=== PATIENT | female | born 1995 | race Caucasian/White ===

== ENCOUNTER 2017-09-26 16:26 | Emergency (ER) | payer OTHER ==
[~2017-09-26] VITALS: Ht 160 cm; Wt 63.5 kg
[2017-09-26 16:26] VITALS: BP_SYST 120
--- NOTE | 2017-09-26 16:26 | NUR ---
Pt placed in bed 5 by ALS, report endorsed to Pierre BELLAMY
--- NOTE | 2017-09-26 16:26 | NUR ---
BROUGHT IN BY [facility], PLACED IN BED #5 AND TRIAGED. REPORT GIVEN TO NASREEN
--- NOTE | 2017-09-26 16:28 | NUR ---
Patient aao x 4, from home with complaint of chest pain and shortness of breath since this afernoon BIBA via ACLS. Upon assessment, patient presents as decreasing chest pain, she states "they gave me an asprin in the ambulance as I was going over here." O2sat 100% on room air, able to move all extrermities, strong and equal traffic analyst strength bilateral upper and lower extremities, no drift noted. She is able to follow commands. No other complaints/injuries per patient, none noted.
--- NOTE | 2017-09-26 16:30 | NUR ---
Dr. Hernandez at bedside examining patient.
[2017-09-26] MEDS ORDERED: ASPIRIN 325 MG TABLET PO ONE (17:00)
[2017-09-26 17:09] LABS: BASOPHILS # (AUTO) 0.1 K/uL (0.0-0.2); BASOPHILS % (AUTO) 1.2 % (0.0-2.0); EOSINOPHILS # (AUTO) 0.2 K/uL (0.0-0.4); EOSINOPHILS % (AUTO) 3.1 % (0.0-4.0); HEMATOCRIT 36.5 % (36-48); HEMOGLOBIN 12.1 g/dL (12.0-16.0); LYMPHOCYTES # (AUTO) 2.1 K/uL (1.0-5.5); LYMPHOCYTES % (AUTO) 34.8 % (20.5-51.5); MEAN CORPUSCULAR HEMOGLOBIN 29 pg (27-31); MEAN CORPUSCULAR HGB CONC 33 % (32-36); MEAN CORPUSCULAR VOLUME 87 fL (79.0-98.0); MONOCYTES # (AUTO) 0.7 K/uL (0.0-1.0); MONOCYTES % (AUTO) 11.6 % (1.7-9.3); NEUTROPHILS # (AUTO) 2.8 K/uL (1.8-7.7); NEUTROPHILS % (AUTO) 49.3 % (40.0-70.0); PLATELET COUNT (AUTO) 138 K/uL (130-430); RED BLOOD CELL COUNT(AUTO) 4.18 MIL/uL (4.2-6.2); RED CELL DISTRIBUTION WIDTH 12.6 % (9.0-15.0); WHITE BLOOD COUNT (AUTO) 5.9 K/uL (4.8-10.8)
[2017-09-26 17:24] LABS: CALCIUM 8.8 mg/dL (8.4-11.0); CREATININE 0.56 mg/dL (0.55-1.30); POTASSIUM 4.3 mmol/L (3.5-5.1)
[2017-09-26 17:29] LABS: ALBUMIN 3.3 g/dL (3.4-4.8)
--- NOTE | 2017-09-26 17:29 | NUR ---
Pt states she was given 2 aspirin pills in the ambulance. Dr. Hernandez notified. Medication cancelled.
[2017-09-26 17:31] LABS: PROTHROMBIN TIME 10.1 SECS (9.5-12.5)
[2017-09-26 17:45] LABS: TOTAL BILIRUBIN 0.1 mg/dL (0.0-1.0)
--- NOTE | 2017-09-26 18:48 | NUR ---
Patient resting in bed, denies chest pain, no shortness of breath noted. No signs of distress at this time. Mother remains at bedside.
--- NOTE | 2017-09-26 19:14 | NUR ---
Report and endorsed care to [facility]. Patient remains resting in bed, no signs of distress at this time.
[2017-09-26 19:45] VITALS: BP_SYST 111
--- NOTE | 2017-09-26 19:45 | NUR ---
Patient given written and verbal discharge instructions and verbalizes understanding. ER MD discussed with patient the results and treatment provided. Patient in stable condition. ID arm band removed. IV catheter removed intact and dressing applied, no active bleeding. Rx of Ativan given. Patient educated on pain management and to follow up with PMD within 2-3days. Pain Scale 0/10; pt and MD agreeable to discharge home. Opportunity for questions provided and answered.
== END 2017-09-26 19:45 | disposition home or self-care (01) ==
LOC: SED 16:26
DX: F41.9 Anxiety disorder, unspecified (principal)
CPT/HCPCS: 36415; 71045; 80053; 82550-TC; 83880; 84484; 85025; 85379; 85610-TC; 85730-TC; 93005; 99285

== ENCOUNTER 2018-02-03 16:58 | Emergency (ER) | payer OTHER ==
[~2018-02-03] VITALS: Ht 165.1 cm; Wt 61.2 kg
[2018-02-03 16:58] VITALS: BP_SYST 107
[2018-02-03 17:44] LABS: RED CELL DISTRIBUTION WIDTH 12.8 % (9.0-15.0); WHITE BLOOD COUNT (AUTO) 5.7 K/uL (4.8-10.8)
[2018-02-03 17:58] LABS: ANION GAP 7 (5-15); CALCIUM 8.1 mg/dL (8.4-11.0); CHLORIDE 105 mmol/L (98-107); CREATININE 0.68 mg/dL (0.55-1.30); GLUCOSE 88 mg/dL (70-99); POTASSIUM 4.1 mmol/L (3.5-5.1); SODIUM SERUM 140 mmol/L (136-145); UREA NITROGEN, BLOOD 12 mg/dL (8-21)
[2018-02-03 17:59] LABS: GFR AFRICAN AMERICAN 139 mL/min (>90); HEMATOCRIT 37.8 % (36-48); HEMOGLOBIN 12.8 g/dL (12.0-16.0); MEAN CORPUSCULAR HEMOGLOBIN 31 pg (27-31); MEAN CORPUSCULAR HGB CONC 34 % (32-36); MEAN CORPUSCULAR VOLUME 92 fL (79.0-98.0); PLATELET COUNT (AUTO) 174 K/uL (130-430); RED BLOOD CELL COUNT(AUTO) 4.12 MIL/uL (4.2-6.2)
[2018-02-03 18:02] LABS: ALANINE AMINOTRANSFERASE 17 U/L (12-78); ALBUMIN 3.2 g/dL (3.4-4.8); ASPARTATE AMINOTRANSFERASE 15 U/L (10-37); TOTAL BILIRUBIN 0.2 mg/dL (0.0-1.0); VALPROIC ACID 90 ug/mL (50-100)
[2018-02-03 18:08] LABS: ALCOHOL, BLOOD < 3 mg/dL (<10)
[2018-02-03 18:21] LABS: ACETAMINOPHEN < 1 ug/mL (1-30)
[2018-02-03 18:30] VITALS: BP_SYST 110
[2018-02-03 19:16] LABS: BAND % (MANUAL) 4 % (0-6); BASOPHILS % (MANUAL) 0 % (0-2); EOSINOPHILS % (MANUAL) 1 % (0-7); LYMPHOCYTES % (MANUAL) 41 % (20-46); MONOCYTES % (MANUAL) 11 % (0-11)
[2018-02-03 21:36] LABS: BARBITURATE, URINE NEGATIVE (NEG <=200); BENZODIAZEPINE, URINE NEGATIVE (NEG <=150); CANNABINOID, URINE NEGATIVE (NEG <=50); COCAINE, URINE NEGATIVE (NEG <=150); METHAMPHETAMINES SCREEN,URINE NEGATIVE (NEG <=500); OPIATE, URINE NEGATIVE (NEG <=100); PHENCYCLIDINE SCREEN,URINE NEGATIVE (NEG <=25); UR TRICYCLIC ANTIDEPRESSANTS NEGATIVE (NEG <=300); URINE AMPHETAMINE NEGATIVE (NEG <=500); URINE METHADONE NEGATIVE (NEG <=200); URINE OXYCODONE SCREEN NEGATIVE (NEG <=100); URINE PROPOXYPHENE SCREEN NEGATIVE (NEG <=300)
== END 2018-02-03 18:30 | disposition home or self-care (01) ==
LOC: SED 16:58
DX: R55 Syncope and collapse (principal); R56.9 Unspecified convulsions; R03.0 Elevated blood-pressure reading, without diagnosis of hypertension
CPT/HCPCS: 36415; 70450; 80053; 80164; 80307; 85007; 85027; 93005; 99285; G0480; G0481; G0482